=== PATIENT | male | born 1980 | race Caucasian/White ===

== ENCOUNTER 2021-10-25 17:07 | Emergency (ER) | payer OTHER, SELFPAY ==
--- NOTE | ~2021-10-25 | XR_ITS ---
XR hand LT min 3V DATE: 10/25/2021 18:01 INDICATION: Thumb laceration TECHNIQUE: 3 views COMPARISON: None FINDINGS: There is an approximately 1 mm radiopaque foreign body in the subcutaneous tissues along th e proximal anterior aspect of the second digit. Mild soft tissue irregularity of the distal aspect of the thumb, consistent with clinical report of l aceration. No radiopaque soft tissue foreign body of the first digit. No fracture, dislocation, perio steal reaction or bone destruction, erosive change or chondrocalcinosis is detected. IMPRESSION: Distal first digit laceration; no recent pelvic foreign body the first digit or fracture or dislocation Reviewed, dictated and finalized at location A. IMPRESSION: Distal first digit laceration; no recent pelvic foreign body the fi rst digit or fracture or dislocation
--- NOTE | 2021-10-25 17:48 | ED.WOUNDLAC ---
HPI - Wound/Laceration General Chief Complaint: Wound/Laceration Stated Complaint: cut finger Time Seen by Provider: 10/25/21 17:48 Source: patient History of Present Illness HPI narrative: 40-year-old male a past history of right tibial fracture status post repair with a steel plate many years ago presents to the ER -- 1.5 cm laceration of tip of the left thumb 1 hour ago by an electric saw. distal neurovascular bundle is intact. Onset (ago): hour(s) ( 1 hour ago) Location: other ( left thumb) Extremity Location: Left: hand Body four view annotation: 1. left thumb 1.5 cm deep laceration of the palmar aspect of the distal phalanx Place: home Patient tetanus UTD: No Context: accidental Associated symptoms: none Treatments prior to arrival: bandage Related Data Allergies Allergy/AdvReac Type Severity Reaction Status Date / Time No Known Allergies Allergy Mild Verified 09/10/09 09:26 Review of Systems Review of Systems: All systems reviewed & are unremarkable except as noted in HPI and below Constitutional: Constitutional: Reports as per HPI and Reports no additional constitutional complaints Eyes: Eyes: Reports as per HPI and Reports no additional eye complaints ENT: Reports system reviewed and no additional complaints, except as documented Cardiovascular: Cardiovascular: Reports as per HPI and Reports no additional cardiovascular complaints Respiratory: Respiratory: Reports as per HPI and Reports no additional respiratory complaints Gastrointestinal: Gastrointestinal: Reports as per HPI and Reports no additional gastrointestinal complaints Genitourinary: Genitourinary: Reports no additional male genitourinary complaints Musculoskeletal: Musculoskeletal: Reports no additional musculoskeletal complaints Integumentary/Breasts: Comments: 1.5 cm laceration of the left thumb Neurologic: Reports system reviewed and no additional complaints, except as documented Comments: distal neurovascular bundle of the left thumb is intact Psychiatric: Psychiatric: Reports no additional psychiatric complaints Endocrine: Endocrine: Reports no additional endocrine complaints Hematologic/Lymphatic: Hematologic/Lymphatic: Reports no additional hematologic/lymphatic complaints Allergic/Immunologic: Allergic/Immunologic: Reports no additional allergic/immunologic complaints ON LICENSE OF [facility] Past Medical History Medical History (Updated 10/25/21 @ 18:30 by Isiah Walsh MD) Tibial fracture Exam Const: General: no acute distress and alert Orientation/consciousness: patient oriented x3 HENMT: Head: normal to inspection and contusion Eyes: Conjunctivae: conjunctivae normal Pupils: Equal, round and reactive pupils present Neck: Neck: normal visual inspection, no lymphadenopathy and no meningeal signs Chest: Chest palpation & inspection: normal inspection of the chest Resp: Effort & Inspection: normal respiratory effort Auscultation: clear to auscultation bilaterally Cardio: Rate: regular rate Rhythm: regular rhythm GI: GI Palp: Yes Soft to palpation Back/Spine/Pelvis: Back: no CVA tenderness Skin: Other: left thumb has a 1.5 cm deep laceration of the palmar aspect of the distal phalanx. No nail involvement. The edges Of the wound are widely . skin loss noted. normal cap refill distally. No sensory loss distally. Normal flexion of the proximal IP joint of the thumb Neuro: General: patient oriented x3 and moves all extremities Extrem: General: normal to inspection Other: Left thumb laceration. Psych: Mental Status: mental status grossly normal Course Course Emergency Course: Left thumb laceration skin loss over the laceration- wound was actively bleeding. bleeding controlled with placement of Surgicel. MDM - Wound/Laceration MDM Narrative Medical decision making narrative: Thumb laceration Differential Diagnosis Differential diagnosis: Likely laceration Imaging Data Atte
[2021-10-25 18:00] VITALS: BP 120/77; PULSE 100; RESP 20; TEMP 36.6; O2SAT 100
[2021-10-25] MEDS: TETANUS,DIPHTHERIA,AC PERTUSSIS ADULT 0.5 ML (ADACEL) IM (18:14)
[2021-10-25] MEDS: ONDANSETRON HCL ODT 4 MG TABLET PO (18:15)
[2021-10-25] MEDS: HYDROmorphone HCL INJ (*CRX) 2 MG/ML VIAL 1 MG IM (18:15)
[2021-10-25] MEDS: CEPHALEXIN 500 MG CAPSULE 1000 MG PO (18:33)
--- NOTE | 2021-10-25 18:43 | PC.NURSE ---
1810right thumb with 1cm tissue missing. area cleaned with betadine. surgicell and tube dressing applied. 1824 no bleeding noted, d/c instructions given 1844 home with tetanus info
[2021-10-25 18:46] VITALS: PULSE 100; RESP 20; TEMP 36.6; O2SAT 98
== END 2021-10-25 18:46 | disposition home or self-care (01) ==
PROVIDERS: Emergency Provider Internal Medicine Critical Care Medicine
DX: S61.122A Laceration with foreign body of left thumb with damage to nail, initial encounter (principal); W27.0XXA Contact with workbench tool, initial encounter
CPT/HCPCS: 73130; 90471; 90715; 96372; 99283; A9270; J1170